=== PATIENT | female | born 1980 | race Two or more races ===

== ENCOUNTER 2016-12-11 11:56 | Emergency (ER) | payer MEDICAID ==
[~2016-12-11] VITALS: Ht 160 cm; Wt 104.3 kg
[~2016-12-11 11:56] MED LIST: ALPR0.25; ALPR0.5T GT; CARI-277; DOCU-99; EMBREL; GABA300C; NOR5T GT; NORCO; TRAZPOW XX; TRIA50TA2 PO
[2016-12-11 13:12] VITALS: BP 123/82
[2016-12-11] MEDS ORDERED: ONDANSETRON HCL 4 MG/2 ML VIAL IM ONE (13:30)
[2016-12-11] MEDS ORDERED: HYDROmorphone HCL 2 MG/ML VL IM ONE (13:30)
[2016-12-11] MEDS ORDERED: METHOCARBAMOL 500 MG TAB PO ONE (13:30)
== END 2016-12-11 14:53 | disposition home or self-care (01) ==
LOC: ER 11:56
DX: S39.012A Strain of muscle, fascia and tendon of lower back, initial encounter (principal); M19.90 Unspecified osteoarthritis, unspecified site; J45.909 Unspecified asthma, uncomplicated; E07.89 Other specified disorders of thyroid; F17.210 Nicotine dependence, cigarettes, uncomplicated; Z98.51 Tubal ligation status; X58.XXXA Exposure to other specified factors, initial encounter; Y93.89 Activity, other specified; Y99.8 Other external cause status; Y92.89 Other specified places as the place of occurrence of the external cause
CPT/HCPCS: 72110; 96372; 99284; J1170; J2405

== ENCOUNTER 2016-12-22 18:14 | Observation (INO) | payer MEDICAID ==
[~2016-12-22] VITALS: Ht 160 cm; Wt 108.9 kg
[2016-12-22 20:42] LABS: DEFINITIVE VIEW TRANSMISSION; Hematocrit 39.3 % (36.0-46.0); Hemoglobin 12.8 g/dL (12.2-16.2); Mean Corpuscular Hemoglobin 26.4 pg (28.0-32.0); Mean Corpuscular Hgb Conc. 32.5 g/dL (32.0-36.0); Mean Corpuscular Volume 81.2 fL (80.0-100.0); Mean Platelet Volume 7.6 fL (7.4-10.4); Platelet Count (auto) 290 10^3/uL (140-450); Red Cell Distribution Width 16.7 % (11.6-16.0); White Blood Cell 9.5 10^3/uL (4.4-10.8)
[2016-12-22 20:51] LABS: Calcium 8.5 mg/dL (8.5-10.1); Chloride 105 mmol/L (98-107); Potassium 4.1 mmol/L (3.5-5.1); Sodium 140 mmol/L (136-145)
[2016-12-22 20:53] LABS: Metamyelocytes % 0; Myelocytes % 0; Promyelocytes % 0; Reactive Lymphocytes 0
[2016-12-22 20:54] LABS: Albumin 3.8 g/dL (3.4-5.0); Anion Gap 9 (5-15); Aspartate Aminotransferase 14 U/L (15-37); BUN/Creatinine Ratio 13.9; Blood Urea Nitrogen 11 mg/dL (7-18); Carbon Dioxide 26 mmol/L (21-32); GFR African American 105 mL/min; GFR Non-African American 87 mL/min; Glucose 94 mg/dL (74-106); Magnesium 2.2 mg/dL (1.6-2.6)
[2016-12-22 20:59] LABS: Alkaline Phosphatase 87 U/L (45-117); Bilirubin, Total 0.6 mg/dL (0.2-1.0); Total Protein 8.3 g/dL (6.4-8.2)
[2016-12-22 22:15] LABS: Hypochromia Slight; Platelet Estimate Adequate
[2016-12-23 00:49] VITALS: BP 143/88
[2016-12-23 01:39] LABS: INR 1.08 (0.9-1.15); Partial Thromboplastin Time 27.1 sec (22.64-33.71); Prothrombin Time 11.1 sec (9.37-12.3)
[2016-12-23 01:41] LABS: B-Type Natriuretic Peptide < 5.0 pg/mL (0-100); Temperature: 22.2 C (20.0-25.0)
== END 2016-12-23 04:07 | disposition home or self-care (01) | DRG 111 ==
LOC: ER 18:17 → OVERFLOW 12-23 01:03 → ER 12-23 04:06
PROVIDERS: ADMIT Emergency Medicine; ATTEND Emergency Medicine
DX: R42 Dizziness and giddiness (principal); F17.210 Nicotine dependence, cigarettes, uncomplicated; J45.909 Unspecified asthma, uncomplicated; R53.1 Weakness; R11.0 Nausea; R07.89 Other chest pain
CPT/HCPCS: 36415; 70450; 71010; 80053; 83735; 83880; 84484; 85007; 85027; 85379; 85610; 85730; 93005; 99285; G0378

== ENCOUNTER 2017-02-02 08:20 | Emergency (ER) | payer MEDICAID ==
[~2017-02-02] VITALS: Ht 162.6 cm; Wt 113.9 kg
[2017-02-02] MEDS ORDERED: PANTOPRAZOLE SODIUM 40 MG/10 ML VIAL IV STA (08:45)
[2017-02-02] MEDS ORDERED: SODIUM CHLORIDE 0.9% 1,000 ML IVB ONE (08:45)
[2017-02-02] MEDS ORDERED: HYDROmorphone HCL 2 MG/ML VL IV ONE ×2 (08:45→10:45)
[2017-02-02] MEDS ORDERED: ONDANSETRON HCL 4 MG/2 ML VIAL IV ONE (08:45)
[2017-02-02 08:59] VITALS: BP 154/84
[2017-02-02 09:05] LABS: Urine Bilirubin Negative (Negative); Urine Blood Negative /uL (Negative); Urine Color Yellow (Yellow); Urine Glucose Normal (Normal); Urine Ketone Negative (Negative); Urine Nitrite Negative (Negative); Urine RBC <1 /hpf (0 - 4); Urine Squamous Epithelial Cell FEW /hpf (<5); Urine Urobilinogen Normal (Negative)
[2017-02-02 09:33] LABS: DEFINITIVE VIEW TRANSMISSION; Hematocrit 41.3 % (36.0-46.0); Hemoglobin 13.3 g/dL (12.2-16.2); Mean Corpuscular Hemoglobin 26.3 pg (28.0-32.0); Mean Corpuscular Hgb Conc. 32.2 g/dL (32.0-36.0); Mean Corpuscular Volume 81.7 fL (80.0-100.0); Mean Platelet Volume 8.1 fL (7.4-10.4); Platelet Count (auto) 286 10^3/uL (140-450); Red Cell Distribution Width 15.7 % (11.6-16.0); White Blood Cell 10.7 10^3/uL (4.4-10.8)
[2017-02-02 09:42] LABS: BUN/Creatinine Ratio 3.8; Calcium 8.8 mg/dL (8.5-10.1); Potassium 3.8 mmol/L (3.5-5.1)
[2017-02-02 09:43] LABS: Bilirubin, Total 0.8 mg/dL (0.2-1.0); Total Protein 8.7 g/dL (6.4-8.2)
[2017-02-02 10:01] LABS: Amylase 19 U/L (25-115)
[2017-02-02 10:17] LABS: Metamyelocytes % 0; Myelocytes % 0; Promyelocytes % 0; Reactive Lymphocytes 0
[2017-02-02 11:21] LABS: Hypochromia Slight; Platelet Estimate Adequate
== END 2017-02-02 11:23 | disposition home or self-care (01) ==
LOC: ER 08:20
DX: K29.70 Gastritis, unspecified, without bleeding (principal); J45.909 Unspecified asthma, uncomplicated; E07.9 Disorder of thyroid, unspecified; M19.90 Unspecified osteoarthritis, unspecified site; R11.2 Nausea with vomiting, unspecified; Z79.899 Other long term (current) drug therapy
CPT/HCPCS: 36415; 76705; 80053; 81001; 81025; 82150; 83690; 84702; 85007; 85027; 94761; 96361; 96374; 96375; 99285; C9113; J1170; J2405

== ENCOUNTER 2017-10-26 18:03 | Emergency (ER) | payer MEDICAID ==
[~2017-10-26] VITALS: Ht 162.6 cm; Wt 107.0 kg
[~2017-10-26 18:03] MED LIST changes: +HYDR-4683 GT; -NOR5T GT
[2017-10-26 20:56] VITALS: BP 146/90
[2017-10-26] MEDS ORDERED: KETOROLAC TROMETH 60MG/2ML VIAL IM ONE (21:00)
[2017-10-26] MEDS ORDERED: DEXAMETHASONE SOD PHOS 10MG/1ML VIAL INJ IM ONE (21:00)
== END 2017-10-26 21:39 | disposition home or self-care (01) ==
LOC: ER 18:14
DX: M06.9 Rheumatoid arthritis, unspecified (principal); J45.909 Unspecified asthma, uncomplicated; E07.9 Disorder of thyroid, unspecified; Z79.899 Other long term (current) drug therapy; Z98.51 Tubal ligation status
CPT/HCPCS: 96372; 99284; J1100; J1885

== ENCOUNTER 2019-06-06 16:12 | Emergency (ER) | payer MEDICAID ==
[~2019-06-06] VITALS: Ht 162.6 cm; Wt 98.4 kg
[~2019-06-06 16:12] MED LIST changes: +DOCU-96; -DOCU-99; -HYDR-4683 GT; +HYDR-4833 GT
[2019-06-06 16:47] VITALS: BP 131/85
[2019-06-06] MEDS ORDERED: KETOROLAC TROMETH 60MG/2ML VIAL IM ONE (17:15)
== END 2019-06-06 17:27 | disposition home or self-care (01) ==
LOC: ER 16:12
DX: S20.211A Contusion of right front wall of thorax, initial encounter (principal); J45.909 Unspecified asthma, uncomplicated; F17.210 Nicotine dependence, cigarettes, uncomplicated; F12.10 Cannabis abuse, uncomplicated; M19.90 Unspecified osteoarthritis, unspecified site; Z98.51 Tubal ligation status; Z79.899 Other long term (current) drug therapy; V43.52XA Car driver injured in collision with other type car in traffic accident, initial encounter; Y93.89 Activity, other specified; Y92.488 Other paved roadways as the place of occurrence of the external cause; Y99.8 Other external cause status
CPT/HCPCS: 71101; 96372; 99283; J1885

== ENCOUNTER → 2019-10-20 | Emergency (ER) | payer MEDICAID | END | disposition left against medical advice (07) | LOC: ER 22:55 | DX: M79.10 Myalgia, unspecified site (principal); Z53.21 Procedure and treatment not carried out due to patient leaving prior to being seen by health care provider ==

== ENCOUNTER 2019-12-27 00:50 | Emergency (ER) | payer MEDICAID ==
[~2019-12-27] VITALS: Ht 160 cm; Wt 96.8 kg
[2019-12-27 02:05] VITALS: BP 123/83
[2019-12-27] MEDS ORDERED: IBUPROFEN 800 MG TAB PO ONE (02:15)
[2019-12-27] MEDS ORDERED: METHOCARBAMOL 500 MG TAB PO ONE (02:30)
[2019-12-27] MEDS ORDERED: KETOROLAC TROMETH 60MG/2ML VIAL IM ONE (02:30)
[2019-12-27] MEDS ORDERED: methylPREDNISolone SOD SUCC 125 MG/2 ML VL IM ONE (02:30)
== END 2019-12-27 02:52 | disposition home or self-care (01) ==
LOC: ER 00:52
DX: M25.512 Pain in left shoulder (principal); M54.2 Cervicalgia; M62.838 Other muscle spasm; J45.909 Unspecified asthma, uncomplicated; F17.210 Nicotine dependence, cigarettes, uncomplicated; Z98.51 Tubal ligation status; Z79.899 Other long term (current) drug therapy
CPT/HCPCS: 96372; 99284; J1885; J2930

== ENCOUNTER 2020-02-01 07:02 | Emergency (ER) | payer MEDICAID ==
[~2020-02-01] VITALS: Ht 162.6 cm; Wt 96.6 kg
[2020-02-01 07:27] VITALS: BP 146/92
[2020-02-01] MEDS ORDERED: methylPREDNISolone SOD SUCC 125 MG/2 ML VL IM ONE (08:15)
[2020-02-01] MEDS ORDERED: KETOROLAC TROMETH 60MG/2ML VIAL IM ONE (08:15)
== END 2020-02-01 08:43 | disposition home or self-care (01) ==
LOC: ER 07:02
DX: M19.90 Unspecified osteoarthritis, unspecified site (principal); M79.641 Pain in right hand; J45.909 Unspecified asthma, uncomplicated; E07.9 Disorder of thyroid, unspecified
CPT/HCPCS: 96372; 99284; J1885; J2930